=== PATIENT | female | born 1980 | race African-American/Black ===

== ENCOUNTER 2023-09-20 12:52 | Emergency (ER) | payer MEDICAID ==
[~2023-09-20] VITALS: Ht 170.2 cm; Wt 90.7 kg
[2023-09-20 12:56] VITALS: O2SAT 100
[2023-09-20] MEDS ORDERED: METH-653 MT (13:30)
[2023-09-20] MEDS ORDERED: IBUP-2029 MT (13:30)
[2023-09-20] MEDS: METHOCARBAMOL 500MG TABLET PO ONE (14:12)
[2023-09-20] MEDS: IBUPROFEN 600MG TABLET PO ONE (14:12)
[2023-09-20 14:21] VITALS: BP 124/86; PULSE 74; RESP 18; TEMP 98.7
== END 2023-09-20 14:22 | disposition home or self-care (01) ==
LOC: ER 12:52
DX: S13.4XXA Sprain of ligaments of cervical spine, initial encounter (principal); I10 Essential (primary) hypertension; Z98.890 Other specified postprocedural states; V89.2XXA Person injured in unspecified motor-vehicle accident, traffic, initial encounter; Y93.89 Activity, other specified; Y92.89 Other specified places as the place of occurrence of the external cause; Y99.8 Other external cause status
CPT/HCPCS: 99283